=== PATIENT | female | born 1965 | race Caucasian/White ===

== ENCOUNTER 2017-02-17 13:05 | Emergency (ER) | payer OTHER ==
[2017-02-17 13:34] LABS: BASOPHIL 0.5 % (0-2); EOSINOPHIL 0.1 % (0-5); HCT 45.8 % (37.0-47.0); HGB 15.5 g/dl (12.5-16.0); LYMPHOCYTE 19.4 % (15-48); MCH 30.3 pg (25.0-31.0); MCHC 33.8 g/dL (32.0-36.0); MCV 89.5 fL (78.0-100.0); MONOCYTE 6.2 % (0-12); MPV 11.1 fL (6.0-9.5); NEUTROPHIL 73.8 % (41-80); PLT 255 K/uL (150-400); RBC 5.12 M/uL (4.20-5.40); WBC 9.2 K/uL (4.0-10.5)
[2017-02-17 13:39] LABS: BILIRUBIN 2+ mg/dL (NEGATIVE); BLOOD 3+ Ery/uL (NEGATIVE); COLOR YELLOW (YELLOW); GLUCOSE (U) NORMAL (NORMAL); KETONE (U) 2+ (MODERATE) mg/dL (NEGATIVE); LEUKOCYTES NEGATIVE Leu/uL (NEGATIVE); NITRITE NEGATIVE (NEGATIVE); PROTEIN 1+ mg/dL (NEGATIVE); SPECIFIC GRAVITY >=1.030 (1.001-1.030)
[2017-02-17 13:40] LABS: CLARITY SLIGHTLY HAZY (CLEAR)
[2017-02-17 13:47] LABS: BACTERIA 4+; SQUAMOUS EPITHELIAL CELLS >50
[2017-02-17 13:55] LABS: ALBUMIN 4.4 g/dL (3.5-5.0); BILIRUBIN - TOTAL 0.5 mg/dL (0.1-1.0); CREATININE 0.4 mg/dL (0.5-1.0); GLOBULIN (CALCULATION) 1.6 g/dL (2.2-4.2); POTASSIUM 3.8 mmol/L (3.5-5.1)
== END 2017-02-17 17:30 | disposition home or self-care (01) ==
LOC: FER 13:05
PROVIDERS: Internal Medicine
DX: K57.30 Diverticulosis of large intestine without perforation or abscess without bleeding (principal); I10 Essential (primary) hypertension; E03.9 Hypothyroidism, unspecified; F17.210 Nicotine dependence, cigarettes, uncomplicated
CPT/HCPCS: 36415; 80053; 81001; 82150; 83690; 85025; C9113; J2405; J2765

== ENCOUNTER 2017-02-21 17:35 | Emergency (ER) | payer OTHER ==
[2017-02-21 18:29] LABS: BASOPHIL 0.5 % (0-2); EOSINOPHIL 0.1 % (0-5); HGB 16.1 g/dl (12.5-16.0); LYMPHOCYTE 17.5 % (15-48); MCH 29.9 pg (25.0-31.0); MCV 85.5 fL (78.0-100.0); MONOCYTE 7.4 % (0-12); MPV 11.4 fL (6.0-9.5); NEUTROPHIL 74.5 % (41-80); PLT 250 K/uL (150-400); RBC 5.38 M/uL (4.20-5.40); RDW 12.8 % (11.5-14.0); WBC 8.1 K/uL (4.0-10.5)
[2017-02-21 18:53] LABS: ALBUMIN 4.8 g/dL (3.5-5.0); BILIRUBIN - TOTAL 0.5 mg/dL (0.1-1.0); CREATININE 0.6 mg/dL (0.5-1.0); GLOBULIN (CALCULATION) 2.2 g/dL (2.2-4.2); POTASSIUM 3.5 mmol/L (3.5-5.1)
[2017-02-21 19:13] LABS: BILIRUBIN 2+ mg/dL (NEGATIVE); BLOOD 3+ Ery/uL (NEGATIVE); CLARITY SLIGHTLY HAZY (CLEAR); COLOR YELLOW (YELLOW); GLUCOSE (U) NORMAL (NORMAL); KETONE (U) 3+ (LARGE) mg/dL (NEGATIVE); LEUKOCYTES NEGATIVE Leu/uL (NEGATIVE); NITRITE NEGATIVE (NEGATIVE); PROTEIN 1+ mg/dL (NEGATIVE); SPECIFIC GRAVITY >=1.030 (1.001-1.030)
[2017-02-21 19:17] LABS: BACTERIA 2+
== END 2017-02-21 19:49 | disposition home or self-care (01) ==
LOC: FER 17:35
PROVIDERS: Nurse Practitioner
DX: R11.2 Nausea with vomiting, unspecified (principal)
CPT/HCPCS: 36415; 80053; 81001; 82150; 83690; 85025; J2765

== ENCOUNTER 2017-02-25 10:37 | Emergency (ER) | payer OTHER ==
[2017-02-25 11:03] LABS: BILIRUBIN 1+ mg/dL (NEGATIVE); BLOOD 2+ Ery/uL (NEGATIVE); CLARITY CLEAR (CLEAR); COLOR YELLOW (YELLOW); GLUCOSE (U) NORMAL (NORMAL); KETONE (U) 1+ (SMALL) mg/dL (NEGATIVE); LEUKOCYTES NEGATIVE Leu/uL (NEGATIVE); NITRITE NEGATIVE (NEGATIVE); PROTEIN 1+ mg/dL (NEGATIVE); SPECIFIC GRAVITY 1.025 (1.001-1.030); pH 6.5 (5.0-9.0)
[2017-02-25 11:12] LABS: AMORPHOUS URATES CRYSTALS MODERATE; BACTERIA TRACE; URINARY RBC RARE; URINARY WBC RARE
[2017-02-25 11:15] LABS: BASOPHIL 0.7 % (0-2); HCT 45.7 % (37.0-47.0); HGB 16.2 g/dl (12.5-16.0); LYMPHOCYTE 18.6 % (15-48); MCH 30.5 pg (25.0-31.0); MCHC 35.4 g/dL (32.0-36.0); MCV 86.1 fL (78.0-100.0); MONOCYTE 7.7 % (0-12); MPV 12.1 fL (6.0-9.5); PLT 250 K/uL (150-400); RBC 5.31 M/uL (4.20-5.40); RDW 13.1 % (11.5-14.0); WBC 10.4 K/uL (4.0-10.5)
[2017-02-25 11:30] LABS: ALBUMIN 4.2 g/dL (3.5-5.0); BILIRUBIN - TOTAL 0.4 mg/dL (0.1-1.0); CREATININE 0.7 mg/dL (0.5-1.0); GLOBULIN (CALCULATION) 2.1 g/dL (2.2-4.2); POTASSIUM 2.7 mmol/L (3.5-5.1); TOTAL PROTEIN 6.3 g/dL (6.4-8.3)
== END 2017-02-25 14:23 | disposition other institution (70) ==
LOC: FER 10:37
PROVIDERS: Internal Medicine
DX: R55 Syncope and collapse (principal); R11.2 Nausea with vomiting, unspecified; E87.6 Hypokalemia; E03.9 Hypothyroidism, unspecified; I10 Essential (primary) hypertension; M81.0 Age-related osteoporosis without current pathological fracture; F17.210 Nicotine dependence, cigarettes, uncomplicated; Z79.899 Other long term (current) drug therapy
CPT/HCPCS: 36415; 71010; 80053; 81001; 83690; 84484; 85025; 93005; J2405

== ENCOUNTER 2020-12-27 11:51 | Emergency (ER) | payer OTHER ==
[~2020-12-27 11:51] MED LIST: AMLODIPINE BES2.5 MG PO; BENTYL10 MG PO; COZAAR100 MG PO; K-DUR20 MEQ PO; LEVOTHYROXINE75 MC1 PO; OMEPRAZOLE40 MG PO; ONDANSETRON ODT4 MG PO; PHENERGAN25 M1 PO; RALOXIFENE HCL60 MG PO; ZOFRAN4 MG PO
[2020-12-27 14:22] LABS: CORONAVIRUS 2019 SARS-COV-2 NEGATIVE (NEGATIVE)
[2020-12-27 14:23] LABS: INFLUENZA A NAA NEGATIVE (NEGATIVE)
[2020-12-27 14:50] LABS: BILIRUBIN NEGATIVE (NEGATIVE); BLOOD 1+ Ery/uL (NEGATIVE); CLARITY CLEAR (CLEAR); COLOR YELLOW (YELLOW); GLUCOSE (U) NORMAL (NORMAL); LEUKOCYTES NEGATIVE Leu/uL (NEGATIVE); NITRITE NEGATIVE (NEGATIVE); PROTEIN NEGATIVE (NEGATIVE); SPECIFIC GRAVITY <=1.005 (1.001-1.030); UROBILINOGEN 0.2 mg/dL (0.2-1.0)
[2020-12-27 15:04] LABS: URINARY RBC RARE
[2020-12-27 15:13] LABS: ALBUMIN 3.5 g/dL (3.4-5.0); BILIRUBIN - TOTAL 0.4 mg/dL (0.2-1.0); BUN/CREAT RATIO (CALC) 14.8 RATIO; CREATININE 0.61 mg/dL (0.51-0.95); GLOBULIN (CALCULATION) 3.3 g/dL; POTASSIUM 3.7 mmol/L (3.5-5.1); TOTAL PROTEIN 6.8 g/dL (6.4-8.2)
[2020-12-27 16:10] LABS: BASOPHIL 0.3 % (0-2); EOSINOPHIL 9.3 % (0-5); HCT 38.1 % (37.0-47.0); HGB 12.3 g/dl (12.5-16.0); LYMPHOCYTE 15.1 % (15-48); MCH 30.4 pg (25.0-31.0); MCHC 32.3 g/dL (32.0-36.0); MCV 94.1 fL (78.0-100.0); MONOCYTE 8.7 % (0-12); MPV 10.7 fL (6.0-9.5); NEUTROPHIL 66.2 % (41-80); NRBC 0; PLT 247 K/uL (150-400); RBC 4.05 M/uL (4.20-5.40); RDW 13.6 % (11.5-14.0); WBC 8.9 K/uL (4.0-10.5)
== END 2020-12-27 16:15 | disposition home or self-care (01) ==
LOC: FER 11:51
PROVIDERS: Emergency Medicine; Nurse Practitioner Family
DX: B34.9 Viral infection, unspecified (principal); B37.0 Candidal stomatitis; I10 Essential (primary) hypertension; Z20.822 Contact with and (suspected) exposure to COVID-19
CPT/HCPCS: 36415; 80053; 81001; 85025; J1885; J2405; J7030; U0002

== ENCOUNTER 2021-01-06 00:21 | Emergency (ER) | payer OTHER ==
[2021-01-06] MEDS ORDERED: PREDNISONE 20MG20 MG PO (04:30)
[2021-01-06] MEDS ORDERED: ATARAX25 MG PO (04:30)
== END 2021-01-06 05:17 | disposition home or self-care (01) ==
LOC: FER 00:21
DX: L50.9 Urticaria, unspecified (principal); I10 Essential (primary) hypertension; E07.9 Disorder of thyroid, unspecified; F17.210 Nicotine dependence, cigarettes, uncomplicated; Z79.899 Other long term (current) drug therapy
CPT/HCPCS: 99282; J7512

== ENCOUNTER 2021-02-18 14:49 | Emergency (ER) | payer OTHER ==
[~2021-02-18 14:49] MED LIST changes: +ATARAX25 MG PO; +PREDNISONE 20MG20 MG PO
[2021-02-18 16:28] LABS: BASOPHIL 0.2 % (0-2); HCT 46.1 % (37.0-47.0); LYMPHOCYTE 19.2 % (15-48); MCH 29.3 pg (25.0-31.0); MCHC 32.5 g/dL (32.0-36.0); MONOCYTE 6.1 % (0-12); MPV 10.4 fL (6.0-9.5); NEUTROPHIL 72.1 % (41-80); NRBC 0; PLT 336 K/uL (150-400); RBC 5.12 M/uL (4.20-5.40); RDW 14.2 % (11.5-14.0); WBC 9.6 K/uL (4.0-10.5)
[2021-02-18 16:28] LABS: BILIRUBIN 2+ mg/dL (NEGATIVE); BLOOD 2+ Ery/uL (NEGATIVE); CLARITY CLEAR (CLEAR); COLOR YELLOW (YELLOW); GLUCOSE (U) NORMAL (NORMAL); LEUKOCYTES NEGATIVE Leu/uL (NEGATIVE); NITRITE NEGATIVE (NEGATIVE); PROTEIN TRACE (LOW) mg/dL (NEGATIVE); SPECIFIC GRAVITY 1.025 (1.001-1.030)
[2021-02-18 16:36] LABS: BACTERIA TRACE
[2021-02-18 16:41] LABS: BILIRUBIN - TOTAL 0.3 mg/dL (0.2-1.0); BUN/CREAT RATIO (CALC) 24.2 RATIO; CREATININE 0.62 mg/dL (0.51-0.95); GLOBULIN (CALCULATION) 3.8 g/dL; POTASSIUM 3.6 mmol/L (3.5-5.1); TOTAL PROTEIN 6.8 g/dL (6.4-8.2)
== END 2021-02-18 19:46 | disposition home or self-care (01) ==
LOC: FER 14:49
PROVIDERS: Emergency Medicine
DX: R10.84 Generalized abdominal pain (principal); R11.2 Nausea with vomiting, unspecified; E86.0 Dehydration; B37.0 Candidal stomatitis; R63.0 Anorexia; I10 Essential (primary) hypertension; F17.210 Nicotine dependence, cigarettes, uncomplicated; Z90.49 Acquired absence of other specified parts of digestive tract
CPT/HCPCS: 36415; 80053; 81001; 82150; 83690; 85025; J2405; J7030; Q9967

== ENCOUNTER 2022-07-13 11:07 | Emergency (ER) | payer OTHER ==
[~2022-07-13 11:07] MED LIST changes: +ALENDRONATE SOD70 MG PO; +AMITRIPTYLINE H10 MG PO; +BUSPAR5 MG PO; +MAGNESIUM30 MG PO; +MONTELUKAST SOD10 MG PO; +TRAMADOL HCL50 MG PO; +XOLAIR75 MG/0.5 IM
[2022-07-13 13:12] LABS: BASOPHIL 0.8 % (0-2); EOSINOPHIL 0 % (0-5); HGB 14.8 g/dl (12.5-16.0); LYMPHOCYTE 20.6 % (15-48); MCH 30.7 pg (25.0-31.0); MCHC 32.9 g/dL (32.0-36.0); MCV 93.4 fL (78.0-100.0); MONOCYTE 7.8 % (0-12); NEUTROPHIL 70.6 % (41-80); NRBC 0; PLT 293 K/uL (150-400); RBC 4.82 M/uL (4.20-5.40); RDW 13.6 % (11.5-14.0); WBC 10.5 K/uL (4.0-10.5)
[2022-07-13 13:37] LABS: ALBUMIN 3.4 g/dL (3.4-5.0); BILIRUBIN - TOTAL 0.4 mg/dL (0.2-1.0); BUN/CREAT RATIO (CALC) 31.7 RATIO; CREATININE 0.63 mg/dL (0.51-0.95); GLOBULIN (CALCULATION) 3.1 g/dL; POTASSIUM 4.3 mmol/L (3.5-5.1); TOTAL PROTEIN 6.5 g/dL (6.4-8.2)
[2022-07-13 16:21] LABS: BILIRUBIN 1+ mg/dL (NEGATIVE); BLOOD 2+ Ery/uL (NEGATIVE); CLARITY CLEAR (CLEAR); COLOR YELLOW (YELLOW); GLUCOSE (U) NORMAL (NORMAL); LEUKOCYTES NEGATIVE Leu/uL (NEGATIVE); NITRITE NEGATIVE (NEGATIVE); PROTEIN TRACE (LOW) mg/dL (NEGATIVE); SPECIFIC GRAVITY 1.025 (1.001-1.030); UROBILINOGEN 0.2 mg/dL (0.2-1.0)
[2022-07-13 16:35] LABS: MUCOUS MODERATE
[2022-07-13] MEDS ORDERED: ATARAX25 MG PO (16:48)
== END 2022-07-13 17:00 | disposition home or self-care (01) ==
LOC: FER 11:07
PROVIDERS: Physician Assistant
DX: F41.0 Panic disorder [episodic paroxysmal anxiety] (principal); I10 Essential (primary) hypertension; F17.210 Nicotine dependence, cigarettes, uncomplicated; Z79.899 Other long term (current) drug therapy
CPT/HCPCS: 36415; 71045; 80053; 81001; 83690; 84484; 85025; 85379; 93005; J1885; J2060; J2405; J7030

== ENCOUNTER 2022-07-14 06:28 | Day surgery (SDC) | payer OTHER ==
[~2022-07-14] VITALS: Ht 163 cm; Wt 54.0 kg
[2022-07-15 06:30] LABS: BASOPHIL 0.2 % (0-2); EOSINOPHIL 0 % (0-5); HCT 35.9 % (37.0-47.0); HGB 11.8 g/dl (12.5-16.0); LYMPHOCYTE 13.3 % (15-48); MCH 31.2 pg (25.0-31.0); MCHC 32.9 g/dL (32.0-36.0); MONOCYTE 7.5 % (0-12); MPV 10.4 fL (6.0-9.5); NEUTROPHIL 78.5 % (41-80); NRBC 0; PLT 250 K/uL (150-400); RBC 3.78 M/uL (4.20-5.40); RDW 13.5 % (11.5-14.0)
[2022-07-15 07:05] LABS: BUN/CREAT RATIO (CALC) 22.7 RATIO; CREATININE 0.66 mg/dL (0.51-0.95); POTASSIUM 4.4 mmol/L (3.5-5.1)
[2022-07-15] MEDS ORDERED: XARELTO10 MG PO (08:51)
[2022-07-15] MEDS ORDERED: ONDANSETRON ODT4 MG PO (08:51)
[2022-07-15] MEDS ORDERED: FEOSOL325 MG PO (08:51)
[2022-07-15] MEDS ORDERED: OXYCODONE-ACET1 EAC1 PO (08:51)
== END 2022-07-15 10:49 | disposition home or self-care (01) ==
LOC: FAS 06:28 → FMS 10:25 → FAS 07-15 10:49
PROVIDERS: Legal Medicine
DX: M17.11 Unilateral primary osteoarthritis, right knee (principal); M21.161 Varus deformity, not elsewhere classified, right knee; M25.761 Osteophyte, right knee; R11.0 Nausea; I10 Essential (primary) hypertension; F17.200 Nicotine dependence, unspecified, uncomplicated
CPT/HCPCS: 36415; 73560; 80048; 85025; 85730; 86850; 86900; 86901; 94010; 94760; 97110; 97162; 97165; 97530-GP; C1713; C1776; J0171; J0697; J0735; J1100; J1170; J1885; J2250; J2270; J2405; J2704; J2795; J3010; J7120

== ENCOUNTER 2022-08-19 14:27 | Day surgery (SDCO) | payer OTHER ==
[~2022-08-19] VITALS: Ht 163 cm; Wt 51.4 kg
[~2022-08-19 14:27] MED LIST changes: +FEOSOL325 MG PO; +OXYCODONE-ACET1 EAC1 PO; +XARELTO10 MG PO
[2022-08-19 14:50] LABS: BASOPHIL 0.8 % (0-2); HCT 47.3 % (37.0-47.0); HGB 15.2 g/dl (12.5-16.0); LYMPHOCYTE 12.6 % (15-48); MCH 30.9 pg (25.0-31.0); MCHC 32.1 g/dL (32.0-36.0); MCV 96.1 fL (78.0-100.0); MONOCYTE 8.1 % (0-12); MPV 10.3 fL (6.0-9.5); NEUTROPHIL 77.2 % (41-80); NRBC 0; PLT 277 K/uL (150-400); RBC 4.92 M/uL (4.20-5.40); RDW 13.2 % (11.5-14.0); WBC 9.9 K/uL (4.0-10.5)
[2022-08-19 15:27] LABS: ALBUMIN 2.9 g/dL (3.4-5.0); BILIRUBIN - TOTAL 0.3 mg/dL (0.2-1.0); BUN/CREAT RATIO (CALC) 11.1 RATIO; CREATININE 0.63 mg/dL (0.51-0.95); GLOBULIN (CALCULATION) 3.5 g/dL; POTASSIUM 4.4 mmol/L (3.5-5.1); TOTAL PROTEIN 6.4 g/dL (6.4-8.2)
[2022-08-19 16:38] LABS: CORONAVIRUS 2019 SARS-COV-2 NEGATIVE (NEGATIVE); INFLUENZA A NAA NEGATIVE (NEGATIVE)
[2022-08-19] MEDS ORDERED: MAG-OXIDE 400M400 MG PO (20:31)
[2022-08-19] MEDS ORDERED: ATARAX25 MG PO (20:34)
[2022-08-19] MEDS ORDERED: ALENDRONATE SOD70 MG PO (20:37)
[2022-08-19] MEDS ORDERED: PERCOCET 5-3251 EACH PO (20:38)
[2022-08-19] MEDS ORDERED: AMILORIDE HCL5 MG PO (20:38)
[2022-08-19] MEDS ORDERED: ONDANSETRON HCL4 MG PO (20:39)
[2022-08-19] MEDS ORDERED: BUSPAR5 MG PO (20:40)
[2022-08-19] MEDS ORDERED: POTASSIUM CHLO20 ME1 PO (20:41)
[2022-08-19] MEDS ORDERED: PRILOSEC20 MG PO (20:41)
[2022-08-19] MEDS ORDERED: SYNTHROID75 MCG PO (20:42)
[2022-08-19] MEDS ORDERED: SINGULAIR10 MG PO (20:42)
[2022-08-19] MEDS ORDERED: NORVASC5 MG PO (20:43)
[2022-08-20 07:11] LABS: HCT 41.5 % (37.0-47.0); HGB 13.2 g/dl (12.5-16.0); MCH 29.9 pg (25.0-31.0); MCHC 31.8 g/dL (32.0-36.0); MCV 94.1 fL (78.0-100.0); RBC 4.41 M/uL (4.20-5.40); RDW 13.1 % (11.5-14.0); WBC 10.6 K/uL (4.0-10.5)
[2022-08-20 07:14] LABS: CREATININE 0.63 mg/dL (0.51-0.95); POTASSIUM 3.9 mmol/L (3.5-5.1)
[2022-08-20] MEDS ORDERED: WELLBUTRIN XL150 M1 PO (10:13)
[2022-08-20] MEDS ORDERED: DUONEB 2.5-0.5M1 AMP NEB (10:13)
[2022-08-20] MEDS ORDERED: INCRUSE ELLI62.5 MCG INH (10:13)
[2022-08-20] MEDS ORDERED: PREDNISONE 20MG20 MG PO (10:13)
[2022-08-20] MEDS ORDERED: NICOTINE PATCH1 EAC2 TD (10:13)
[2022-08-20] MEDS ORDERED: AZITHROMYCIN250 MG PO (10:13)
--- NOTE | 2022-08-20 12:03 | NUR ---
08/20 Ms. Marrufo lives at home with her spouse. Their 2 y/o granddaughter also livves in the home. - Ms. Marrufo reports to meet her basic financial nees. - A referral was made to [facility] 02 @ 2 L.
--- NOTE | 2022-08-20 14:06 | NUR ---
PATIENT GIVEN BACK HOME MEDS FROM LOCK UP
== END 2022-08-20 14:07 | disposition home or self-care (01) ==
LOC: FER 14:27 → FMS 18:33
PROVIDERS: Emergency Medicine; Nurse Practitioner Acute Care; ADMIT Internal Medicine
DX: J44.1 Chronic obstructive pulmonary disease with (acute) exacerbation (principal); J20.9 Acute bronchitis, unspecified; J44.0 Chronic obstructive pulmonary disease with (acute) lower respiratory infection; R09.02 Hypoxemia; I10 Essential (primary) hypertension; R11.0 Nausea; F41.9 Anxiety disorder, unspecified; F17.210 Nicotine dependence, cigarettes, uncomplicated; M81.0 Age-related osteoporosis without current pathological fracture; Z20.822 Contact with and (suspected) exposure to COVID-19; Z79.899 Other long term (current) drug therapy
CPT/HCPCS: 36415; 36600; 71045; 71275; 80048; 80053; 82803; 83605; 83880; 84145; 84484; 85025; 85379; 86140; 87040; 93005; 94010; 94640; 94664; 94760; G0378; J0456; J0696; J2920; J2930; J7050; J7512; Q0162; Q9967; U0002